=== PATIENT | male | born 1990 ===

== ENCOUNTER 2018-03-11 19:18 | Inpatient (IN) | payer MEDICAID, OTHER ==
--- NOTE | 2018-03-11 20:29 | C.PDOC ---
History Of Present Illness 27 y/o male presents to ED requesting detox from opioid and benzodiazepine. Patient reports last use earlier today. Uses heroin for 7+ years and Xanax for 4 + years. Denies history of withdrawal seizures, IV drug use or any other physical complaints at this time. Time Seen by Provider: 03/11/18 20:26 Chief Complaint (Nursing): Substance Abuse History Per: Patient History/Exam Limitations: no limitations Onset/Duration Of Symptoms: Days Current Symptoms Are (Timing): Still Present Suicide/Self Injury Attempted (Context): None Modifying Factor(s): Narcotics Past Medical History Reviewed: Historical Data, Nursing Documentation, Vital Signs Vital Signs: Last Vital Signs Temp 98.6 F 03/12/18 16:54 Pulse 80 03/12/18 16:54 Resp 18 03/12/18 16:54 BP 113/69 03/12/18 16:54 Pulse Ox 97 03/13/18 13:10 - Medical History PMH: No Chronic Diseases Surgical History: No Surg Hx Family History: States: No Known Family Hx - Social History Hx Alcohol Use: Yes Hx Substance Use: Yes Review Of Systems Constitutional: Negative for: Fever, Chills Cardiovascular: Negative for: Chest Pain Respiratory: Negative for: Shortness of Breath Gastrointestinal: Negative for: Nausea, Vomiting Skin: Negative for: Rash Psych: Positive for: Other (substance abuse). Negative for: Withdrawal Physical Exam - Physical Exam Appears: Non-toxic, No Acute Distress Skin: Warm, Dry, No Rash Head: Atraumatic, Normacephalic Eye(s): bilateral: Normal Inspection, EOMI Nose: Normal Oral Mucosa: Moist Neck: Normal ROM, Supple Chest: Symmetrical Cardiovascular: Rhythm Regular Respiratory: Normal Breath Sounds, No Accessory Muscle Use, No Rales, No Rhonchi , No Wheezing Gastrointestinal/Abdominal: Soft, No Tenderness, No Guarding, No Rebound Neurological/Psych: Oriented x3, Normal Speech, Normal Cognition ED Course And Treatment - Laboratory Results Result Diagrams: 03/11/18 20:38 03/11/18 20:38 O2 Sat by Pulse Oximetry: 97 (RA) Pulse Ox Interpretation: Normal Progress Note: Patient is pre screened and is medically cleared for admission. Pt was accepted by Dr Roberts for detox. Disposition - Disposition Disposition: HOSPITALIZED Disposition Time: 15:00 Condition: STABLE - Clinical Impression Clinical Impression: Opioid dependence, Benzodiazepine abuse - PA / CPS TEAM LEAD / Resident Statement MD/DO has reviewed & agrees with the documentation as recorded. - Scribe Statement The provider has reviewed the documentation as recorded by the Gal Walker All medical record entries made by the Gal were at my direction and personally dictated by me. I have reviewed the chart and agree that the record accurately reflects my personal performance of the history, physical exam, medical decision making, and the department course for this patient. I have also personally directed, reviewed, and agree with the discharge instructions and disposition.
[2018-03-11 20:43] LABS: BASO # 0.1 K/uL (0.0-0.2); BASO % 0.6 % (0.0-2.0); EOS # 0.2 K/uL (0.0-0.7); EOS % 2.2 % (0.0-4.0); LYMPH % 23.7 % (20.0-40.0); MEAN CELL VOLUME 90.2 fL (80.0-94.0); MEAN CORPUSCULAR HEMOGLOBIN 31.7 pg (27.0-31.0); MEAN CORPUSCULAR HGB CONC 35.1 g/dL (33.0-37.0); MEAN PLATELET VOLUME 7.9 fL (7.2-11.7); MONO # 0.6 K/uL (0.0-0.8); MONO % 7.2 % (0.0-10.0); NEUT # 5.6 K/uL (1.8-7.0); NEUT % 66.3 % (50.0-75.0); NRBC % 0.2 % (0.0-2.0); RBC 5.04 Mil/uL (4.40-5.90); RED CELL DISTRIBUTION WIDTH 12.7 % (11.5-14.5); WHITE BLOOD COUNT 8.5 K/uL (4.8-10.8)
[2018-03-11 20:58] LABS: ALB/GLOB RATIO 1.7 (1.0-2.1); ALT/SGPT 38 U/L (21-72); AST/SGOT 41 U/L (17-59); BLOOD UREA NITROGEN 11 mg/dL (9-20); CALCIUM 9.8 mg/dl (8.6-10.4); GFR NON-AFRICAN AMERICAN > 60
[2018-03-11 21:40] LABS: URINE BACTERIA RARE (<OCC); URINE BILIRUBIN NEGATIVE (NEGATIVE); URINE BLOOD 1+ (NEGATIVE); URINE CLARITY Clear (Clear); URINE COLOR Yellow (YELLOW); URINE GLUCOSE (UA) NORMAL (Normal); URINE LEUKOCYTE ESTERASE NEG Leu/uL (Negative); URINE PROTEIN NEGATIVE (NEGATIVE); URINE UROBILINOGEN NORMAL mg/dL (0.2-1.0)
[2018-03-11 21:48] LABS: BARBITURATES, UR NEGATIVE (NEGATIVE); PHENCYCLIDINE, UR NEGATIVE (NEGATIVE)
[2018-03-11 21:53] LABS: BENZODIAZEPINES, UR POSITIVE (NEGATIVE); OPIATES, UR POSITIVE (NEGATIVE)
--- NOTE | 2018-03-11 22:20 | PCM.BM ---
<Carin Burks - Last Filed: 03/11/18 22:18> Treatment Plan Problems - Problems identified on initial assessmt potiential for opiate withdrawal Date Initiated: 03/11/18 Time Initiated: 22:19 Assessment reference: NA Status: Active potiential for autonomic instability related to anxylotic withdrawal Date Initiated: 03/11/18 Time Initiated: 22:19 Assessment reference: NA Status: Active Treatment assets and liabiliti Patient Assests: ADL independent, physically healthy Patient Liabilities: relationship conflicts, substance abuse, legal issue - Milieu Protocol Maintain good personal hygiene: daily Encourage regular showers, daily Remind patient to perform daily oral care, daily Assist patient to perform ADL's Maintain personal safety: every shift Educate patient to report safety concerns to staff, every shift Monitor environment for contraband/sharps Medication safety: Monitor for expected outcome, potential side effects: every shift, Assess barriers to learning: every shift, Assess readiness for medication education: every shift <Kevin Mtz - Last Filed: 03/12/18 10:11> - Diagnosis (1) Opioid use disorder, severe, dependence Status: Acute Interventions: 03/12/18 10:12 * Assess 7x/week regarding severity of withdrawal * Educate regarding risks, benefits, side effects and alternatives of medications * Use Motivational Interviewing for abstinence * Use CBT for relapse prevention * Medication management for withdrawal symptoms * Encourage medication assisted treatment * <Rita Rodriguez - Last Filed: 03/12/18 10:55> Family Contact Family involvement: Family/SO is involved Family contact name: dad/Alex Family contacted how many times per week?: 1 - Goals for Treatment Patient goals for treatment: Complete detox and transition to inpatient rehab. Discharge/Continuing Care - Education Needs Education Needs: Family Medication, Family Diagnosis/Disease Process, Patient Medication, Patient Diagnosis/Disease Process, Patient Coping Skills, Patient Anger Management skills, Patient Placement options, Patient Community resources - Discharge Discharge Criteria: No longer exhibiting s/s of withdrawal, Reduction of target symptoms Discharge to:: Substance Abuse Rehab - Treatment Team Participation Patient/Family/SO Statement: 03/12/18 10:55 "I wanna try to go to [facility]. Discussed with Family/SO: No Was Patient/Family/SO present at Treatment Team Meeting: Yes
[2018-03-12] MEDS ORDERED: Aluminum Hydroxide/Magnesium Hydroxide Susp (30 mL) PO PRN (00:14)
--- NOTE | 2018-03-12 10:11 | PCM.PSYCH ---
Initial Psychiatric Evaluation - Initial Psychiatric Evaluation Type of Admission: Voluntary Legal Status: Capacity History of Present Illness and Precipitating Events: Mr. Neely is 27 year old male who is single, has no children, and lives with his family (father, mother, 1 brother, 1 sister). Pt presenting for opioid detoxification. He states that he snorted 10-15 bags of heroin on average. The last time he used heroin was yesterday, about 10 bags. He has been using heroin for over 7 years. This is not his first time for opioid detoxification. He has been through 6 more detoxification in the past. His longest sobriety from heroin was 6 months from his most recent detoxification program, but he relapsed 2 months ago. Pt denies being on any maintenance drug during this period. When asked for reason for relapse, he says "Wrong place, wrong time." Pt also presenting for benzodiazepine detoxification. He states that he uses 1- 2 pills (2mg per pill) on average per day. The last time he used it was yesterday. Pt states that he has been using xanax for over 4 years. When asked why he started using it, he denies anxiety and said he was using it "just for fun." He says this is his first detoxification for this. Pt admits to smoking about 4 cigarettes/day. He rarely smokes marijuana. He denies EtOH use. He denies any other drug use. Pt's plan after detoxification is to attend rehab. Psych Hx: Denies feeling depressed. Denies feeling tired. Denies manic episodes. Denies SI/HI. Denies hearing voices. Denies any traumatic history. Family Psych Hx: Unremarkable Medical Hx: Unremarkable Legal Hx: Unremarkable Current Medications: Active Medications Generic Name Dose Route Start Last Admin Trade Name Freq PRN Reason Stop Dose Admin Acetaminophen 650 mg 03/12/18 00:14 Tylenol 325mg Tab PO Q4H PRN Fever greater than 101 F Al Hydrox/Mg Hydrox/Simethicone 30 ml 03/12/18 00:14 Maalox 30 Ml PO TID PRN Indigestion / Heartburn Clonidine HCl 0.1 mg 03/12/18 00:14 Catapres PO Q8 PRN COWS Score More or Equal to 5 Hydroxyzine HCl 25 mg 03/12/18 00:15 Atarax PO Q6 PRN Agitation Loperamide HCl 2 mg 03/12/18 00:14 Imodium PO Q8 PRN Diarrhea Ondansetron HCl 4 mg 03/12/18 00:14 Zofran Tab PO Q8 PRN Nausea/Vomiting Pseudoephedrine HCl 60 mg 03/12/18 00:14 Sudafed Tab PO QID PRN Nasal/Sinus Congestion Past Psychiatric History - Past Psychiatric History Pertinent Medical Hx (Current Medical&Sleep Prob, Allergies): Allergies Allergy/AdvReac Type Severity Reaction Status Date / Time No Known Allergies Allergy Verified 03/11/18 19:45 No Known Home Med 03/11/18 DSM 5 DX - Recommended/Plan of Treatment Treatment Recommendations and Plan of Treatment: Taper with Librium for BZO Gabapentin for augmentation if needed As needed medications All risks, benefits and alternatives of the meds discussed, and the pt agreed and understood. Attend groups and activities Supportive therapy and psychoeducation [place] for abstinence CBT for relapse prevention Encourage MAT Refer to rehab or IOP, and self-help groups Smoking cessation with NM Nicotine patch if needed
[2018-03-12 16:56] VITALS: BP 113/69; PULSE 80; RESP 18; TEMP 98.6
--- NOTE | 2018-03-12 22:55 | PCM.PYCHDC ---
Mental Status Examination - Mental Status Examination Orientation: Person Discharge Summary - Discharge Note Consultations:: List each consultation separately and include: 1. Reason for request. 2. Findings. 3. Follow-up Summary of Hospital Course include:: 1. Description of specific treatment plan utilized for patients during their course of treatmen. 2. Summarize the time- course for resolution of acute symptoms and/or regressed behaviors. 3. Describe issues identified and worked on during hospitalization. 4. Describe medication utilized. 5. Describe medical problems identified and treated. 6. Reassessment of suicide risk Summary of Hospital Course: Mr. Neely is 27 year old male who is single, has no children, and lives with his family (father, mother, 1 brother, 1 sister). Pt presenting for opioid detoxification. He states that he snorted 10-15 bags of heroin on average. The last time he used heroin was yesterday, about 10 bags. He has been using heroin for over 7 years. This is not his first time for opioid detoxification. He has been through 6 more detoxification in the past. His longest sobriety from heroin was 6 months from his most recent detoxification program, but he relapsed 2 months ago. Pt denies being on any maintenance drug during this period. When asked for reason for relapse, he says "Wrong place, wrong time." Pt also presenting for benzodiazepine detoxification. He states that he uses 1- 2 pills (2mg per pill) on average per day. The last time he used it was yesterday. Pt states that he has been using xanax for over 4 years. When asked why he started using it, he denies anxiety and said he was using it "just for fun." He says this is his first detoxification for this. Pt admits to smoking about 4 cigarettes/day. He rarely smokes marijuana. He denies EtOH use. He denies any other drug use. Pt's plan after detoxification is to attend rehab. Psych Hx: Denies feeling depressed. Denies feeling tired. Denies manic episodes. Denies SI/HI. Denies hearing voices. Denies any traumatic history. Family Psych Hx: Unremarkable Medical Hx: Unremarkable Legal Hx: Unremarkable - Diagnosis (1) Opioid use disorder, severe, dependence Status: Acute - Final Diagnosis (DSM 5) Condition upon Discharge: GOOD Disposition: AGAINST MEDICAL ADVICE Follow-up Treatment Plan: Taper with Librium for BZO Gabapentin for augmentation if needed As needed medications All risks, benefits and alternatives of the meds discussed, and the pt agreed and understood. Attend groups and activities Supportive therapy and psychoeducation [place] for abstinence CBT for relapse prevention Encourage MAT Refer to rehab or IOP, and self-help groups Smoking cessation with [place] Nicotine patch if needed
[2018-03-13 13:10] VITALS: O2SAT 97
== END 2018-03-12 20:03 | disposition left against medical advice (07) | DRG 743 ==
LOC: C.ER 19:18 → C.7D 21:58
PROVIDERS: ADMIT Psychiatry & Neurology Psychiatry; ATTEND Psychiatry & Neurology Psychiatry
PROC: HZ52ZZZ Individual Psychotherapy for Substance Abuse Treatment, Cognitive-Behavioral (ICD-10-PCS; principal; 2018-03-11)
PROC: HZ2ZZZZ Detoxification Services for Substance Abuse Treatment (ICD-10-PCS; 2018-03-11)
PROC: HZ59ZZZ Individual Psychotherapy for Substance Abuse Treatment, Supportive (ICD-10-PCS; 2018-03-11)
PROC: HZ56ZZZ Individual Psychotherapy for Substance Abuse Treatment, Psychoeducation (ICD-10-PCS; 2018-03-11)
PROC: HZ42ZZZ Group Counseling for Substance Abuse Treatment, Cognitive-Behavioral (ICD-10-PCS; 2018-03-11)
PROC: HZ46ZZZ Group Counseling for Substance Abuse Treatment, Psychoeducation (ICD-10-PCS; 2018-03-11)
DX: F11.23 Opioid dependence with withdrawal (principal); F13.10 Sedative, hypnotic or anxiolytic abuse, uncomplicated; F17.210 Nicotine dependence, cigarettes, uncomplicated